=== PATIENT | female | born 1970 | race Caucasian/White ===

== ENCOUNTER 2022-01-04 21:49 | Emergency (ER) | payer MEDICARE, OTHER ==
[~2022-01-04] VITALS: Ht 175.3 cm; Wt 83.0 kg
[2022-01-04] MEDS ORDERED: HUMIRA40 MG/0.8 SUB-Q (23:42)
[2022-01-04] MEDS ORDERED: DILAUDID4 MG PO (23:43)
[2022-01-04] MEDS ORDERED: CLONAZEPAM1 MG PO (23:43)
[2022-01-04] MEDS ORDERED: ALIGN4 MG PO (23:44)
[2022-01-04] MEDS ORDERED: SERTRALINE HCL100 MG PO (23:44)
[2022-01-04] MEDS ORDERED: MULTI VITAMIN1 EACH PO (23:45)
[2022-01-04] MEDS ORDERED: NAPROXEN500 MG PO (23:45)
[2022-01-04] MEDS ORDERED: VITAMIN D250 MCG PO (23:45)
== END 2022-01-05 04:15 | disposition home or self-care (01) ==
LOC: ED 21:49
DX: R10.10 Upper abdominal pain, unspecified (principal); J06.9 Acute upper respiratory infection, unspecified; K50.90 Crohn's disease, unspecified, without complications; Z88.5 Allergy status to narcotic agent; Z79.899 Other long term (current) drug therapy
CPT/HCPCS: 36415; 74177; 80053; 83690; 84703; 85025; 99284-25; J1170; Q9967